=== PATIENT | male | born 1980 | race Caucasian/White ===

== ENCOUNTER 2016-08-11 14:01 | Emergency (ER) | payer BC, MEDICAID ==
[~2016-08-11] VITALS: Ht 175.3 cm; Wt 75.1 kg
[2016-08-11 14:05] VITALS: Ht 175.3 cm; Wt 75.1 kg
[2016-08-11] MEDS ORDERED: DOLU50TA PO (14:44)
[2016-08-11] MEDS ORDERED: TRUV PO (14:45)
--- NOTE | 2016-08-11 15:29 | ERD ---
ER Documentation Chief Complaint Date/Time DATE: 08/11/16 TIME: 15:26 Chief Complaint wants truvad px, had sexual intercourse with hiv+ HPI This is a 36-year-old male presents to the ER requesting HIV postexposure prophylaxis. Patient had unprotected sexual intercourse on Tuesday with an HIV- positive partner. Patient denies any fevers or chills. Denies any flulike symptoms. She denies any penile discharge or any urinary frequency or dysuria. ROS 12 point review of systems was done, all negative except per HPI. Medications Home Meds Active Scripts Emtricitabine-Tenofovir* (Truvada*) 200-300 Mg Tab, 1 TAB PO DAILY for 30 Days, TAB Prov:ADWOA LAZARO 08/11/16 Dolutegravir Sodium (Tivicay) 50 Mg Tablet, 50 MG PO QHS for 30 Days, TAB Prov:ADWOA LAZARO 08/11/16 Physical Exam Vitals Vital Signs Date Time Temp Pulse Resp B/P Pulse Ox O2 Delivery O2 Flow Rate FiO2 08/11/16 14:05 98.1 75 18 133/80 99 Physical Exam GENERAL: The patient is well developed and appropriate for usual state of health , in no apparent distress. HEENT: Atraumatic. CHEST: Clear to auscultation bilaterally. There are no rales, wheezes or rhonchi. HEART: Regular rate and rhythm. No murmurs, clicks, rubs or gallops. NEURO: Alert and oriented. Procedures/MDM This is a 36-year-old male presents to the ER requesting PEP. At this time patient is asymptomatic is within the timeframe to receive medications. Patient was given a prescription for Truvada and dolutegavir. Patient is to follow-up with his primary care doctor within 1-2 days or return to ER sooner symptoms worsen. My medical decision making was shared with patient he understands and agrees with plan. Departure Diagnosis: Primary Impression: Encounter for medication refill Condition: Stable Patient Instructions: HIV-1/HIV-2 Rapid Screen Additional Instructions: Call your primary care doctor TOMORROW for an appointment during the next 1-2 days.See the doctor sooner or return here if your condition worsens before your appointment time. IF YOU ARE HAVING PROBLEMS GETTING MEDICATION YOU CAN GO TO [facility] AND TRY TO LOOK FOR COUPONS. ADWOA LAZARO Aug 11, 2016 15:28
== END 2016-08-11 14:48 | disposition home or self-care (01) ==
LOC: E/R 14:01
DX: Z20.6 Contact with and (suspected) exposure to human immunodeficiency virus [HIV] (principal)
CPT/HCPCS: 99284